=== PATIENT | male | born 1960 | race Caucasian/White ===

== ENCOUNTER 2021-06-15 06:58 | Day surgery (SDC) | payer OTHER ==
--- NOTE | 2021-06-12 14:01 | NUR ---
WEIGHT AND HEIGHT OBTAINED FROM H&P
[~2021-06-15] VITALS: Ht 177.8 cm; Wt 93.2 kg
[~2021-06-15 06:58] MED LIST: AZELASTIN-FLUTI23 GM NAS; CITRACAL SOFT1 EACH PO; COZAAR50 MG PO; VENTOLIN HFA18 GM; ZYRTEC10 MG PO
[2021-06-15] MEDS ORDERED: AZELASTINE137 MCG/0. (07:49)
--- NOTE | 2021-06-15 09:08 | NUR ---
06/15/21 09 Story,Lien 0907 PT. ARRIVED DROWSY BUT AWAKENS EASILY.
--- NOTE | 2021-06-15 14:46 | NUR ---
PT ALERT, ORIENTED AND SUPPORTED BY DIONNA. PT IS HAVING SCOPE-ROUTINE. ALL QUESTIONS ASKED ANSWERED. PT REQUESTED PRAYER, WILL FOLLOW NEEDED
--- NOTE | 2021-06-15 18:29 | OR ---
[facility] [address] [place], [place] [address] Signed DATE OF OPERATION: 06/15/2021 SURGEON: Charlene Nicolas MD PREOPERATIVE DIAGNOSIS: Colon surveillance. POSTOPERATIVE DIAGNOSES: 1. Sigmoid diverticulosis. 2. Polyps x4. PROCEDURES: Total colonoscopy to cecum with hot snare polypectomy x1 and cold morcellation polypectomy x3. ANESTHESIA: Intravenous sedation, fentanyl 100 mcg and Versed 7 mg. INDICATION: This 61-year-old white man is a patient of Dr. Kareem Macario. He has no family history of colon cancer or symptoms currently. He last underwent colonoscopy in 2009. He is admitted at this time to undergo colonoscopy for surveillance. He understands the risks of bleeding, infection, and perforation. FINDINGS: The prep was excellent. Complete colonoscopy was undertaken to the cecum without question. He had numerous diverticula of the sigmoid and left colon, none of which were fibrotic or inflamed. Had four small polyps, one of which was larger and was excised with hot snare polypectomy technique. PROCEDURE NOTE: The patient was brought to the endoscopy suite and placed in lateral decubitus position, given intravenous sedation to the point of slurred speech and nystagmus. Digital rectal examination was normal including normal prostate. The Olympus video colonoscope was passed in the rectum and manipulated throughout the colon noting diverticular change of the sigmoid and left colon. Scope was ultimately advanced to the cecum which was easily intubated. The ileocecal valve and appendiceal orifice were normal. The scope was withdrawn from that point and examination undertaken showing no sign of abnormality until approximately the splenic flexure where there were two small polyps, these were excised with cold morcellation technique. The scope was further withdrawn and Electronically Signed By: CHARLENE NICOLAS MD 06/15/21 1829 PATIENT NAME: WANDA SINCLAIR OPERATIVE REPORT DATE OF : 60 REPORT #: [id number] PHYSICIAN: CHARLENE NICOLAS MD PCP: NASEEM MACARIO MD REPORT IS CONFIDENTIAL AND NOT TO BE RELEASED WITHOUT AUTHORIZATION [facility] [address] [place], [place] [address] Signed approximately 48 cm was a pedunculated polyp, this was excised with hot snare polypectomy technique. Specimen was passed for pathology. Further withdrawal showed another small polyp in the rectum, which was excised with cold morcellation technique. The scope was removed and the patient was taken to the recovery room in good condition. CONCLUDING DIAGNOSIS: Polyps x4, diverticulosis. PLAN: Recommend a repeat colonoscopy in 3 years sooner if symptoms should occur. He will return to the ongoing care of Dr. Macario. MD KIRSTEN Stallings/BRANDIN /[id number] cc: Naseem Macario MD Copies: NASEEM MACARIO MD ~ Electronically Signed By: CHARLENE NICOLAS MD 06/15/21 1829 PATIENT NAME: WANDA SINCLAIR OPERATIVE REPORT DATE OF : 60 REPORT #: [id number] PHYSICIAN: CHARLENE NICOLAS MD PCP: NASEEM MACARIO MD REPORT IS CONFIDENTIAL AND NOT TO BE RELEASED WITHOUT AUTHORIZATION
== END 2021-06-15 09:45 | disposition home or self-care (01) ==
LOC: DS 06:58 → OPS 06:58 → DS 08:30 → OPS 09:45
PROVIDERS: ATTEND Surgery
PROC: 0DBE8ZZ Excision of Large Intestine, Via Natural or Artificial Opening Endoscopic (ICD-10-PCS; 2021-06-15)
PROC: 0DBE8ZZ Excision of Large Intestine, Via Natural or Artificial Opening Endoscopic (ICD-10-PCS; principal; 2021-06-15 08:30)
DX: Z12.11 Encounter for screening for malignant neoplasm of colon (principal); D12.6 Benign neoplasm of colon, unspecified; K63.5 Polyp of colon; K62.1 Rectal polyp; K57.30 Diverticulosis of large intestine without perforation or abscess without bleeding; G47.33 Obstructive sleep apnea (adult) (pediatric); K21.9 Gastro-esophageal reflux disease without esophagitis; I10 Essential (primary) hypertension; Z90.49 Acquired absence of other specified parts of digestive tract; Z98.890 Other specified postprocedural states; Z88.2 Allergy status to sulfonamides; Z88.8 Allergy status to other drugs, medicaments and biological substances
CPT/HCPCS: 99153; G0500; J2250; J3010; J7121

== ENCOUNTER 2024-09-24 06:20 | Day surgery (SDC) | payer OTHER ==
[~2024-09-24] VITALS: Ht 177.8 cm; Wt 93.2 kg
[~2024-09-24 06:20] MED LIST changes: +AZELASTINE137 MCG/0.; +LIPITOR10 MG PO; +MIDAZOLAM HCL 5 MG/5 ML VIAL IV PRN; +fentaNYL citrate 100 MCG/2 ML VIAL IV PRN
[2024-09-24] MEDS ORDERED: PREVACID30 MG PO (06:46)
[2024-09-24] MEDS ORDERED: MIDAZOLAM HCL 5 MG/5 ML VIAL ONE (06:50)
[2024-09-24] MEDS ORDERED: fentaNYL citrate 100 MCG/2 ML VIAL ONE (06:50)
[2024-09-24 06:53] VITALS: BP 108/68
[2024-09-24] MEDS ORDERED: LIDOCAINE HCL 4% 50 ML BTL TOP SCH (07:00)
[2024-09-24] MEDS ORDERED: CEFAZOLIN SODIUM 2 GM/20 ML SYR IV SCH (07:00)
[2024-09-24] MEDS ORDERED: LACTATED RINGER'S 1,000 ML IV SCH (07:00)
[2024-09-24] MEDS ORDERED: LIDOCAINE HCL 1% 5 ML SDV INJ ONE (07:00)
[2024-09-24] MEDS ORDERED: IBLOOD GLUCOSE TEST STRIP 1 EA TEST VI PRN (07:00)
--- NOTE | 2024-09-24 07:22 | NUR ---
VISITED DURING SPIRITUAL CARE ROUNDS. PT SUPPORTED BY IN ROOM. BOTH APPEARED TO BE IN GOOD SPIRITS, NO OVERT SIGNS OF ANXIETY, DENIED IMMEDIATE NEEDS. TIRE BUFFER PROVIDED SUPPORTIVE PRESENCE, HOSPITALITY, PRAYER, FACILITATED INTERACTION WITH THERAPY ANIMAL.
--- NOTE | 2024-09-24 08:30 | NUR ---
09/24/24 0830 Lisa Dahl 0819 PT ARRIVED IN PACU AWAKE WITH NO C/O'S. ABD SOFT. 0825 REPOSITIONED SELF TO BACK. 0830 SNORING. REU.
[2024-09-24 08:52] VITALS: BP 124/73
--- NOTE | 2024-09-24 18:00 | OR ---
[facility] [address] [facility] [place] [address] Signed DATE OF OPERATION: 09/24/2024 SURGEON: Charlene Nicolas MD PREOPERATIVE DIAGNOSIS: History of polyps. POSTOPERATIVE DIAGNOSES: 1. Diverticulosis. 2. 1.5 cm sessile polyp at 35 cm. 3. Hyperplastic polyps at 45 cm. PROCEDURE: Total colonoscopy to cecum with cold morcellation polypectomy x3 and hot snare polypectomy with mucosal lift technique x1. ANESTHESIA: Intravenous sedation; fentanyl 100 mcg and Versed 6 mg. INDICATION: This 64-year-old white man is a patient of Dr. Pallavi Puentes and last underwent colonoscopy in 2020. At that time, he was noted to have a polyp in the region of the cecum, which was excised with hot snare polypectomy and cold morcellation polypectomy x3. Polyps included a tubular adenoma and hyperplastic polyps, which were multiple. He currently has no symptoms of bleeding, diarrhea, or constipation and no family history of colon cancer. He is admitted at this time to undergo colonoscopy. He understands the risk of bleeding, infection, perforation, and so on. FINDINGS: The prep was good. Complete colonoscopy was undertaken to the cecum. He had diverticula of the sigmoid and left colon. There were three small hyperplastic polyps of the distal descending colon and a larger sessile polyp at 35 cm in the sigmoid. All were excised. DESCRIPTION OF PROCEDURE: The patient was brought to the endoscopy suite and placed in the lateral decubitus position, given intravenous sedation to the point of slurred speech and nystagmus. Digital rectal examination was normal. Electronically Signed By: CHARLENE NICOLAS MD 09/24/[address] [facility] PATIENT NAME: WANDA SINCLAIR OPERATIVE REPORT DATE OF : 60 REPORT #: [id number] PHYSICIAN: CHARLENE NICOLAS MD PCP: PALLAVI PUENTES MD REPORT IS CONFIDENTIAL AND NOT TO BE RELEASED WITHOUT AUTHORIZATION [facility] [address] [place], [place] [address] Signed An Olympus video colonoscope was passed in the rectum and manipulated throughout the colon ultimately intubating the cecum. A large somewhat suspicious polyp was noted in the sigmoid upon passage of the scope initially. The ileocecal valve and appendiceal orifice were normal. Scope was withdrawn from that point and examination undertaken more fully. In the distal descending colon, there were three hyperplastic appearing polyps. These were excised with cold morcellation technique. Further withdrawal identified the previously noted larger sessile polyp of the sigmoid at 35 cm. This did have some suspicion to it. It was sessile and certainly close to 2 cm in size. Using a sclerotherapy needle and Endo tyron tattoo dye, the base of the polyp was injected allowing for mucosal lift excision. Additional injection of tattoo dye was injected on the opposite surface of the colon. Using a 15 mm snare, the polyp was ultimately encircled and excised with hot snare polypectomy technique. Complete excision was undertaken. The specimen was retrieved with a Flores net and ultimately removed completely. Re-evaluation of the site upon re-insertion of the scope confirmed it to be completely excised. There appeared to be no complications and certainly no bleeding. The scope was removed and the patient was taken to recovery room in good condition. CONCLUDING DIAGNOSIS: Polyps x4. One of them is slightly suspicious, but completely excised. PLAN: Recommend repeat colonoscopy in 3 to 5 years providing the polyp excised was not malignant. He will return to the ongoing care of Dr. Puentes. Charelne Nicolas MD JM/MODL /[id number] cc: Dr. Puentes. Electronically Signed By: CHARLENE NICOLAS MD 09/24/24 1800 PATIENT NAME: WANDA SINCLAIR OPERATIVE REPORT DATE OF : 60 REPORT #: [id number] PHYSICIAN: CHARLENE NICOLAS MD PCP: PALLAVI PUENTES MD REPORT IS CONFIDENTIAL AND NOT TO BE RELEASED WITHOUT AUTHORIZATION [facility] [address] [place], [place] [address] Signed Copies: ~ Electronically Signed By: CHARLENE NICOLAS MD 09/24/24 1800 PATIENT NAME: WANDA SINCLAIR OPERATIVE REPORT DATE OF : 60 REPORT #: [id number] PHYSICIAN: CHALRENE NICOLAS MD PCP: PALLAVI PUENTES MD REPORT IS CONFIDENTIAL AND NOT TO BE RELEASED WITHOUT AUTHORIZATION
--- NOTE | 2024-09-27 16:32 | PATH ---
[facility] [address] [place], [place] [address] Signed SPECIMEN(S): A SIGMOID POLYP SPECIMEN(S): B SIGMOID POLYP, 45 CM SPECIMEN SOURCE: A. SIGMOID POLYP B. SIGMOID POLYP, 45 CM CLINICAL HISTORY: Pre-; 05/2021 history tubular adenoma multiple hyperplastic polyps. Post; diverticulosis X polyps X4 FINAL PATHOLOGIC DIAGNOSIS: A. Colon, sigmoid, polypectomy: - Hyperplastic polyp B. 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 [facility] MICROSCOPIC EXAMINATION: Histologic sections of all submitted blocks are examined by light microscopy. These findings, together with the gross examination, support the pathologic diagnosis. GROSS DESCRIPTION: A. The specimen, labeled and designated "Lillie Sinclair, per the requisition sigmoid polyp," is received in formalin and consists of two mayberry soft tissue fragments, ranging from 0.1-0.4 cm. Entirely submitted in (A1). B. The specimen, labeled and designated "Lillie Sinclair, further requisition sigmoid polyp at 45 cm," is received in formalin and consists of one mayberry soft tissue fragment, 1.3 x 0.9 x 0.8 cm. The tissue sample inked black and quadrisected.Entirely submitted in (B1). AB (under the direct supervision of a pathologist) The Gross Description was prepared using a voice recognition system. The report was reviewed for accuracy; however, sound-alike word errors, addition and/or PATIENT NAME: WANDA SINCLAIR PATHOLOGY DATE OF : 60 REPORT #: [id number] PHYSICIAN: LUIS SUE PCP: PALLAVI PUENTES MD REPORT IS CONFIDENTIAL AND NOT TO BE RELEASED WITHOUT AUTHORIZATION [facility] [address] [place], [place] [address] Signed deletions may occur. If there is any question about this report, please contact Client Services. ADDITIONAL NOTES: Immunohistochemical and/or in situ hybridization studies if performed in this case included appropriate positive controls that reacted as expected. This test was developed and its performance characteristics determined by [facility]. It has not been cleared or approved by the U.S. Food and Drug Administration. The FDA has determined that such clearance or approval is not necessary. This test is used for clinical purposes. It should not be regarded as investigational or for research. [facility] is certified under the Clinical Laboratory Improvement Amendments of 1988 (CLIA) as qualified to perform high complexity clinical laboratory testing. PERFORMING LABORATORY: Technical component was performed by [facility], [address] [place] [id number] (CLIA# [id number]). Professional interpretation was performed by [employer] [facility] - [facility] [address] [place] [id number] Diagnostician: Papa Patel MD Pathologist Electronically Signed 09/27/2024 Copies: ~ PATIENT NAME: WANDA SINCLAIR PATHOLOGY DATE OF : 60 REPORT #: [id number] PHYSICIAN: LUIS PATHOLOGY PCP: PALLAVI PUENTES MD REPORT IS CONFIDENTIAL AND NOT TO BE RELEASED WITHOUT AUTHORIZATION
== END 2024-09-24 08:53 | disposition home or self-care (01) ==
LOC: DS 06:20
PROVIDERS: ATTEND Surgery
PROC: 0DBN8ZZ Excision of Sigmoid Colon, Via Natural or Artificial Opening Endoscopic (ICD-10-PCS; 2024-09-24)
PROC: 0DBG8ZZ Excision of Left Large Intestine, Via Natural or Artificial Opening Endoscopic (ICD-10-PCS; principal; 2024-09-24 07:30)
DX: Z12.11 Encounter for screening for malignant neoplasm of colon (principal); D12.5 Benign neoplasm of sigmoid colon; K63.5 Polyp of colon; K57.90 Diverticulosis of intestine, part unspecified, without perforation or abscess without bleeding; I10 Essential (primary) hypertension; Z96.659 Presence of unspecified artificial knee joint
CPT/HCPCS: 99153; G0500; J0690; J2250; J3010; J7121

== ENCOUNTER 2025-02-04 07:30 | Day surgery (SDC) | payer OTHER ==
[~2025-02-04] VITALS: Ht 177.8 cm; Wt 93.2 kg
[~2025-02-04 07:30] MED LIST changes: -AZELASTINE137 MCG/0.; +AZELASTINE137 MCG/0. NAS; +CEFAZOLIN SODIUM 2 GM/20 ML SYR IV SCH; +IBLOOD GLUCOSE TEST STRIP 1 EA TEST VI PRN; +LACTATED RINGER'S 1,000 ML IV SCH; +LIDOCAINE HCL 1% 5 ML SDV INJ ONE; +PREVACID30 MG PO
--- NOTE | 2025-02-04 07:45 | NUR ---
VISITED DURING SPIRITUAL CARE ROUNDS. PT IN OVERALL GOOD SPIRITS; NO IMMEDIATE NEEDS. LATHE SET UP OPERATOR PROVIDED SUPPORTIVE PRESENCE, HOSPITALITY, PRAYER, FACILITATED INTERACTION WITH THERAPY ANIMAL.
[2025-02-04 07:52] VITALS: BP 126/73
[2025-02-04] MEDS ORDERED: fentaNYL citrate 100 MCG/2 ML VIAL ONE (08:28)
[2025-02-04] MEDS ORDERED: MIDAZOLAM HCL 5 MG/5 ML VIAL ONE (08:29)
--- NOTE | 2025-02-04 09:12 | NUR ---
02/04/25 0912 Christina Coker OXYGEN SATURATION REMAINS 100% ON 2L VIA NC. OXYGEN IS DISCONTINUED AT THIS TIME. PATIENT IS AWAKE, ALERT AND TALKING WITH ME ON ARRIVAL TO PACU.
[2025-02-04 09:31] VITALS: BP 131/84
--- NOTE | 2025-02-05 13:16 | OR ---
[facility] [address] [place], [place] [address] Signed DATE OF OPERATION: 02/04/2025 SURGEON: Charlene Nicolas MD PREOPERATIVE DIAGNOSIS: History of polyps 2020. POSTOPERATIVE DIAGNOSIS: Sigmoid diverticulosis. No evidence of polyps. PROCEDURE: Total colonoscopy to cecum. ANESTHESIA: Intravenous sedation fentanyl 100 mcg, Versed 6 mg. PREOPERATIVE DIAGNOSIS: Antibiotic Ancef 2 g. INDICATION: This 64-year-old white man is a patient of Dr. Pallavi Puentes. He underwent colonoscopy by me in 2020, where he had four polyps excised. None of them were serrated adenomas. He has no family history of colon cancer. No current symptoms. He does have history of knee replacement and on that basis preoperative antibiotic Ancef has been given. He understands the risk of screening colonoscopy including but not limited to bleeding, infection, and perforation; wished to proceed. FINDINGS: The prep was good. Complete colonoscopy was undertaken to the cecum. There were numerous diverticula of the sigmoid colon, but no evidence of polyps. Previous endoscopic tattoo tyron was noted in the left colon. DESCRIPTION OF PROCEDURE: The patient was brought to the endoscopy suite and placed in lateral decubitus position, given intravenous sedation to the point of slurred speech and nystagmus. Digital rectal examination was normal. An Olympus video colonoscope was passed in the rectum and manipulated throughout the colon. Diverticula were noted in the sigmoid. Scope was advanced ultimately to the cecum. The right colon was less well prepped, though with irrigation, mucosal evaluation was adequate. The scope was withdrawn from the cecum and examination throughout showed no sign of polyps or colitis, only diverticula of the Electronically Signed By: CHARLENE NICOLAS MD 02/05/25 1316 PATIENT NAME: WANDA SINCLAIR OPERATIVE REPORT DATE OF : 60 REPORT #: [id number] PHYSICIAN: CHARLENE NICOLAS MD PCP: PALLAVI PUENTES MD REPORT IS CONFIDENTIAL AND NOT TO BE RELEASED WITHOUT AUTHORIZATION [facility] [address] [place], [place] [address] Signed sigmoid colon. Retroflexed view was normal as well. The scope was removed. The patient was taken to the recovery room in good condition. CONCLUDING DIAGNOSIS: Diverticulosis. No evidence of polyps. PLAN: Recommend repeat colonoscopy in 10 years. Recommend high-fiber diet. He will return to the ongoing care of Dr. Pallavi Puentes. MD KIRSTEN Stallings/MODL /[id number] cc: Pallavi Puentes MD Copies: PALLAVI PUENTES DMD ~ Electronically Signed By: CHARLENE NICOLAS MD 02/05/25 1316 PATIENT NAME: WANDA SINCLAIR OPERATIVE REPORT DATE OF : 60 REPORT #: [id number] PHYSICIAN: CHARLENE NICOLAS MD PCP: PALLAVI PUENTES MD REPORT IS CONFIDENTIAL AND NOT TO BE RELEASED WITHOUT AUTHORIZATION
== END 2025-02-04 09:35 | disposition home or self-care (01) ==
LOC: DS 07:30
PROVIDERS: ATTEND Surgery
PROC: 0DJD8ZZ Inspection of Lower Intestinal Tract, Via Natural or Artificial Opening Endoscopic (ICD-10-PCS; principal; 2025-02-04 08:15)
DX: Z12.11 Encounter for screening for malignant neoplasm of colon (principal); K57.30 Diverticulosis of large intestine without perforation or abscess without bleeding; I10 Essential (primary) hypertension; K21.9 Gastro-esophageal reflux disease without esophagitis; G47.30 Sleep apnea, unspecified; Z86.0102 Personal history of hyperplastic colon polyps; Z79.899 Other long term (current) drug therapy; Z88.2 Allergy status to sulfonamides
CPT/HCPCS: 99153; G0500; J0690; J2250; J3010; J7121